=== PATIENT | female | born 1985 | race Caucasian/White ===

== ENCOUNTER 2021-06-24 14:41 | Emergency (ER) | payer OTHER ==
[~2021-06-24] VITALS: Ht 162.6 cm; Wt 76.0 kg
[2021-06-24] MEDS ORDERED: KETOROLAC 60 MG/2 ML VIAL. IM ONE (15:15)
[2021-06-24] MEDS ORDERED: ORPHENADRINE CITRATE 60 MG/2 ML VIAL. IM ONE (15:15)
[2021-06-24] MEDS ORDERED: DEXT30TA2 PO (15:15)
[2021-06-24 15:16] VITALS: BP 145/90
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
[2021-06-24] MEDS ORDERED: ORPH-16 PO (16:04)
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
== END 2021-06-24 16:07 | disposition home or self-care (01) ==
LOC: ER 14:41
DX: Z04.1 Encounter for examination and observation following transport accident (principal); M62.838 Other muscle spasm; M54.2 Cervicalgia; Z88.5 Allergy status to narcotic agent; V43.52XA Car driver injured in collision with other type car in traffic accident, initial encounter; Y93.I9 Activity, other involving external motion; Y92.89 Other specified places as the place of occurrence of the external cause; Y99.8 Other external cause status
CPT/HCPCS: 72040; 96372; 99284; J1885; J2360